=== PATIENT | female | born 1985 | race Hispanic/Latino ===

== ENCOUNTER 2022-08-13 20:56 | Emergency (ER) | payer OTHER ==
[~2022-08-13] VITALS: Ht 160 cm; Wt 104.3 kg
[2022-08-13] MEDS ORDERED: FAMOTIDINE 20 MG/2 ML VIAL IV STA (22:21)
[2022-08-13] MEDS ORDERED: SODIUM CHLORIDE 0.9% 1000ML 1,000 ML ONE (22:28)
[2022-08-13] MEDS ORDERED: DIPHENHYDRAMINE HCL INJ 50 MG/ML VIAL ONE (22:28)
[2022-08-13] MEDS ORDERED: FAMOTIDINE 20 MG/2 ML VIAL IV ONE (22:28)
[2022-08-13] MEDS ORDERED: SODIUM CHLORIDE 0.9% 1000ML 1,000 ML IV SCH (22:30)
[2022-08-13] MEDS ORDERED: DIPHENHYDRAMINE HCL INJ 50 MG/ML VIAL IV ONE (22:30)
[2022-08-13] MEDS ORDERED: FAMOTIDINE20 MG PO (23:44)
[2022-08-13] MEDS ORDERED: CETIRIZINE HCL10 MG PO (23:45)
[2022-08-13] MEDS ORDERED: EPINEPHRIN0.3 MG/0.3 IM (23:53)
[2022-08-14] VITALS: O2SAT 97
== END 2022-08-14 00:13 | disposition home or self-care (01) ==
LOC: FSED 21:19
DX: O26.91 Pregnancy related conditions, unspecified, first trimester (principal); T80.69XA Other serum reaction due to other serum, initial encounter; T50.995A Adverse effect of other drugs, medicaments and biological substances, initial encounter; E28.2 Polycystic ovarian syndrome; L40.50 Arthropathic psoriasis, unspecified; R60.0 Localized edema
CPT/HCPCS: 99283; J1200; J7030